=== PATIENT | female | born 1980 | race Caucasian/White ===

== ENCOUNTER 2017-05-23 00:19 | Emergency (ER) | payer SELFPAY ==
[2017-05-23] MEDS ORDERED: Ketorolac Tromethamine 30 MG/ML VIAL ONE (00:33)
== END 2017-05-23 01:13 | disposition home or self-care (01) ==
LOC: ERS 00:19
DX: K03.81 Cracked tooth (principal); K02.9 Dental caries, unspecified; F17.210 Nicotine dependence, cigarettes, uncomplicated
CPT/HCPCS: 96372; J1885